=== PATIENT | male | born 1975 | race Caucasian/White ===

== ENCOUNTER 2019-12-26 16:07 | Inpatient (IN) | payer MEDICAID ==
[~2019-12-26] VITALS: Ht 167.6 cm; Wt 74.8 kg
[2019-12-26 16:16] VITALS: BP 135/91
--- NOTE | 2019-12-26 16:27 | NUR ---
BLOOD SUGAR: 421. MD NOTIFIED.
--- NOTE | 2019-12-26 16:31 | NUR ---
Dr. Calderón is evaluating the patient at bedside.
[2019-12-26] MEDS ORDERED: INSULIN REGULAR, HUMAN 100 UNIT/ML VIAL SUBQ ONE (16:35)
[2019-12-26] MEDS ORDERED: NACL 0.9% 1,000 ML IV ONE (16:35)
--- NOTE | 2019-12-26 16:47 | NUR ---
LABS DRAWN BY YESY ANTUNEZ
--- NOTE | 2019-12-26 16:50 | NUR ---
C/O POLYDIPSIA, DRY MOUTH, BLURRY VISION X TODAY TOOK BLOOD SUGAR 1 HOUR AGO: 500. FSBS IN TRIAGE: 421. INJECTED INSULIN 1 HR AGO -WEAKNESS, -NUMBNESS, -DIZZINESS, -H/A, -N/V PT APPEARS IN NAD. GCS 15 PMH: DM MEDS: METFORMIN NKA Addendum: 12/26/19 at 1714 by BORA MEDS: METFORMIN, HUMULIN (UNSPECIFIED)
[2019-12-26 17:07] LABS: BASOPHILS % (AUTO) 0.6 % (0.0-2.0); EOSINOPHILS # (AUTO) 0.2 K/uL (0-0.4); EOSINOPHILS % (AUTO) 2.4 % (0.0-4.0); HEMATOCRIT 41.9 % (36-52); HEMOGLOBIN 14.7 g/dL (12.0-18.0); LYMPHOCYTES # (AUTO) 2.1 K/uL (2.0-11.5); LYMPHOCYTES % (AUTO) 30.9 % (20.5-51.1); MEAN CORPUSCULAR HEMOGLOBIN 28 pg (27-31); MEAN CORPUSCULAR HGB CONC 35 g/dL (33-37); MEAN CORPUSCULAR VOLUME 80.9 fL (80-94); MONOCYTES # (AUTO) 0.4 K/uL (0.8-1.0); MONOCYTES % (AUTO) 5.2 % (1.7-9.3); NEUTROPHILS # (AUTO) 4.2 K/uL (1.8-7.7); NEUTROPHILS % (AUTO) 60.9 % (42.2-75.2); PLATELET COUNT (AUTO) 264 K/uL (140-450); RED BLOOD CELL COUNT(AUTO) 5.19 MIL/uL (4.20-6.10); RED CELL DISTRIBUTION WIDTH 12.4 % (11.6-13.7); WHITE BLOOD COUNT (AUTO) 6.8 K/uL (4.8-10.8)
[2019-12-26 17:34] LABS: ALBUMIN 4.3 g/dL (3.4-5.0); ANION GAP 15.2 (8-16); CARBON DIOXIDE 26.6 mmol/L (21-32); CREATININE 1.1 mg/dL (0.6-1.3); POTASSIUM 3.8 mmol/L (3.5-5.1); TOTAL BILIRUBIN 0.3 mg/dL (0.0-1.0)
[2019-12-26] MEDS ORDERED: NACL 0.9% 1,000 ML IV SCH (18:33)
[2019-12-26] MEDS ORDERED: ONDANSETRON 4 MG/2 ML VIAL IVP PRN (18:35)
[2019-12-26] MEDS ORDERED: DEXTROSE 50% 50 ML SYR IVP PRN (18:35)
[2019-12-26] MEDS ORDERED: HYDROcodone/APAP 7.5/325 MG 1 TAB PO PRN (18:35)
[2019-12-26] MEDS ORDERED: ACETAMINOPHEN 325 MG TAB PO PRN (18:35)
--- NOTE | 2019-12-26 18:50 | NUR ---
Patient will be admitted to care of DR GROSS. Admited to MED SURG. Will go to room 119B. Belongings list completed. Report to JOEL ANTUNEZ.
--- NOTE | 2019-12-26 19:00 | NUR ---
RECEIVED PATIENT FROM ED VIA WHEELCHAIR. BEDSIDE REPORT GIVEN FROM ED NURSE MARTY. PATIENT IS AWAKE AND ALERT. NO SOB OR DISTRESS NOTED ON ROOM AIR. IV ACCESS ON LEFT AC 20 GAUGE, PATENT AND INTACT. INITIAL ASSESSMENT DONE. INITIAL VITAL SIGNS TAKEN. MRSA SWAB DONE AND SENT TO LAB. SKIN IS INTACT. ORIENTED TO ROOM. BED IN LOW, SAFETY MEASURES IN PLACE. CALL LIGHT PLACED WITHIN PATIENT REACH. WILL CONTINUE TO MONITOR PATIENT.
[2019-12-26 19:07] LABS: APPEARANCE,URINE CLEAR (CLEAR); BILIRUBIN,URINE NEGATIVE (NEGATIVE); BLOOD, URINE NEGATIVE (NEGATIVE); COLOR,URINE YELLOW (YELLOW); LEUKOCYTE ESTERASE ,URINE NEGATIVE (NEGATIVE); NITRITE, URINE NEGATIVE (NEGATIVE); PH,URINE 5.5 (5.0-9.0); UGLUCOSE 3+ (NEGATIVE)
[2019-12-26 19:23] LABS: BARBITURATE, URINE NEGATIVE ng/ml (NEG <=200); BENZODIAZEPINE, URINE NEGATIVE ng/mL (NEG <=200); CANNABINOID, URINE NEGATIVE ng/mL (NEG <=50); COCAINE, URINE NEGATIVE ng/mL (NEG <=300); OPIATE, URINE NEGATIVE ng/mL (NEG <=2000); PHENCYCLIDINE SCREEN,URINE NEGATIVE ng/mL (NEG <=25)
[2019-12-26 19:32] LABS: MAGNESIUM 2.1 mg/dL (1.8-2.4); PHOSPHORUS 2.6 mg/dL (2.5-4.9); THYROID STIMULATING HORMONE 1.33 uIU/mL (0.34-3.74)
[2019-12-26 19:53] LABS: PROTHROMBIN TIME 9.3 secs (10.8-13.4)
[2019-12-26] MEDS ORDERED: INSULIN NPH HUM/REG INSULIN HM 100 UNIT/ML 10 ML VIAL SUBQ SCH (21:00)
--- NOTE | 2019-12-26 21:10 | NUR ---
PATIENT HAD A BLOOD GLUCOSE RESULT OF 137. NO HUMALOG INSULIN COVERAGE NEEDED AT THIS TIME.
[2019-12-26] MEDS: BLOOD GLUCOSE MONITORING 1 DEV DEV FS SCH (21:11)
[2019-12-26] MEDS: DOCUSATE SODIUM 100 MG GELCAP PO SCH (21:22)
--- NOTE | 2019-12-26 23:23 | NUR ---
ROUNDS DONE. VISIBLE CHEST RISE AND FALL NOTED. CALL LIGHT PLACED WITHIN PATIENT REACH. WILL CONTINUE TO MONITOR PATIENT.
[2019-12-27 00:10] VITALS: BP 124/75
--- NOTE | 2019-12-27 00:10 | NUR ---
VITALS TAKEN AT THIS TIME. NO DISTRESS NOTED. WILL CONTINUE TO MONITOR PATIENT.
--- NOTE | 2019-12-27 02:14 | NUR ---
ROUNDS DONE. VISIBLE CHEST RISE AND FALL NOTED. CALL LIGHT WITHIN PATIENT REACH. WILL CONTINUE TO MONITOR PATIENT.
[2019-12-27] MEDS: INSULIN LISPRO SLIDING SCALE 100 UNITS/ML VIAL SUBQ PRN ×2 (06:07→11:14)
--- NOTE | 2019-12-27 06:12 | NUR ---
PATIENT HAD A BLOOD GLUCOSE RESULT OF 279 WITH 6 UNITS OF REGULAR HUMALOG INSULIN GIVEN AT THIS TIME.
--- NOTE | 2019-12-27 06:13 | NUR ---
PATIENT IN STABLE CONDITION. CALL LIGHT PLACED WITHIN PATIENT REACH. WILL ENDORSE TO AM SHIFT NURSE FOR CONTINUITY OF CARE.
[2019-12-27 06:16] LABS: ANION GAP 11.3 (8-16); CARBON DIOXIDE 26.1 mmol/L (21-32); CREATININE 0.8 mg/dL (0.6-1.3); POTASSIUM 3.4 mmol/L (3.5-5.1)
[2019-12-27 06:19] LABS: CHOL/HDL RATIO 7.3 (1-4.5); MAGNESIUM 1.9 mg/dL (1.8-2.4); PHOSPHORUS 3.1 mg/dL (2.5-4.9)
[2019-12-27] MEDS: BLOOD GLUCOSE MONITORING 1 DEV DEV FS SCH ×2 (06:39→11:13)
[2019-12-27 06:56] LABS: BASOPHILS % (AUTO) 0.3 % (0.0-2.0); EOSINOPHILS # (AUTO) 0.1 K/uL (0-0.4); EOSINOPHILS % (AUTO) 1.5 % (0.0-4.0); HEMATOCRIT 36.6 % (36-52); HEMOGLOBIN 12.7 g/dL (12.0-18.0); LYMPHOCYTES # (AUTO) 1.9 K/uL (2.0-11.5); LYMPHOCYTES % (AUTO) 21.2 % (20.5-51.1); MEAN CORPUSCULAR HEMOGLOBIN 28 pg (27-31); MEAN CORPUSCULAR HGB CONC 35 g/dL (33-37); MEAN CORPUSCULAR VOLUME 81.8 fL (80-94); MONOCYTES # (AUTO) 0.5 K/uL (0.8-1.0); MONOCYTES % (AUTO) 5.9 % (1.7-9.3); NEUTROPHILS # (AUTO) 6.4 K/uL (1.8-7.7); NEUTROPHILS % (AUTO) 71.1 % (42.2-75.2); PLATELET COUNT (AUTO) 222 K/uL (140-450); RED BLOOD CELL COUNT(AUTO) 4.48 MIL/uL (4.20-6.10); RED CELL DISTRIBUTION WIDTH 12.1 % (11.6-13.7); WHITE BLOOD COUNT (AUTO) 9.1 K/uL (4.8-10.8)
--- NOTE | 2019-12-27 07:39 | NUR ---
SHIFT REPORT RECEIVED FROM WINERY WORKER NURSE PT IS IN BED IN RESTING AT THIS TIME. PT IS RESPONSIVE. NO DISTRESS NOTED. CALL LIGHT IN REACH.
[2019-12-27 08:00] VITALS: BP 127/74
[2019-12-27] MEDS ORDERED: metFORMIN 500 MG TAB PO SCH (08:00)
[2019-12-27] MEDS: DOCUSATE SODIUM 100 MG GELCAP PO SCH (08:51)
[2019-12-27] MEDS ORDERED: POTASSIUM CHLORIDE 10 MEQ TABER PO SCH (09:00)
[2019-12-27] MEDS ORDERED: FAMOTIDINE 20 MG TAB PO SCH (09:00)
--- NOTE | 2019-12-27 09:05 | NUR ---
PATIENT HAS BEEN SCREENED AND CATEGORIZED MODERATE NUTRITION RISK. PATIENT WILL BE SEEN WITHIN 3-5 DAYS OF ADMISSION. 12/29/19 12/31/[address]
--- NOTE | 2019-12-27 09:30 | NUR ---
PT IS IN BED AT THIS TIME. PT IS AWAKE AND RESPONSIVE. NO DISTRESS NOTED. NO COMPLAINS OF PAIN. WILL CONTINUE TO MONITOR. FAMILY BY BEDSIDE.CALL LIGHT IN REACH.
[2019-12-27] MEDS ORDERED: INFLUENZA VACCINE QUAD 0.5 ML SYR IMVAC PRN (10:00)
[2019-12-27] MEDS ORDERED: GLIP5TAB4 PO (10:31)
[2019-12-27] MEDS ORDERED: ASPI-1822 PO (10:33)
[2019-12-27] MEDS ORDERED: METF500T PO (10:34)
[2019-12-27] MEDS ORDERED: ATOR10TA PO (10:35)
--- NOTE | 2019-12-27 11:39 | NUR ---
PT IS IN BED AT THIS TIME. PT IS AWAKE AND RESPONSIVE. NO DISTRESS NOTED. NO COMPLAINS OF PAIN. WILL CONTINUE TO MONITOR. PT'S BLOOD SUGAR IS 338. INSULIN GIVEN. PT WILL BE DISCHARGED WHEN BS IS WITHIN NORMAL LEVELS. CALL LIGHT IN REACH.
--- NOTE | 2019-12-27 13:03 | NUR ---
PT WAS DISCHARGED TODAY. DISCHARGE INSTRUCTIONS GIVEN TO PATIENT. BS WAS 258 UPON DISCHARGE. NOT[address] BRITT. PT WALKED WITH A STEADY GAIT. PT WILL F/U WITH PCP UPON D/C NO COMPLAINS OF PAIN. NO DISTRESS. SKIN INTACT. PT STABLE UPON DISCHARGE. PRESCRIPTION SENT TO PHARMACY. MEDS EDUCATION GIVEN. IV REMOVED. ID BAND REMOVED. PT ACCOMPANIED BY FAMILY UPON DISCHARGE.
--- NOTE | 2019-12-27 13:36 | NUR ---
Tailor Apprentice Note: SW attempted to conduct screening but patient was discharged.
== END 2019-12-27 12:30 | disposition home or self-care (01) | DRG 420 ==
LOC: MED 16:07 → MTU 18:33
PROVIDERS: ADMIT General Practice; ATTEND General Practice
DX: E11.65 Type 2 diabetes mellitus with hyperglycemia (principal); D68.59 Other primary thrombophilia; E78.5 Hyperlipidemia, unspecified; Z23 Encounter for immunization; E87.6 Hypokalemia
CPT/HCPCS: 36415; 71045; 80048; 80053; 80305; 81003; 82948; 83036; 83735; 83880; 84100; 84443; 84484; 85025; 85610; 85730; 87081; 93005; 96360; 96372; 99285; J1815; J7030; Q0092